=== PATIENT | female | born 1985 | race Caucasian/White ===

== ENCOUNTER → 2020-02-20 11:18 | Outpatient (BNVA) | payer OTHER, SELFPAY | PROVIDERS: PCP Internal Medicine; Visit Provider Surgery | DX: E66.01 Morbid (severe) obesity due to excess calories (principal); Z68.43 Body mass index [BMI] 50.0-59.9, adult | CPT/HCPCS: 99214; Q3014 ==

== ENCOUNTER → 2020-03-10 16:10 | Outpatient (BNVA) | payer OTHER, SELFPAY | PROVIDERS: PCP Internal Medicine; Referring Provider Internal Medicine; Visit Provider Dietitian, Registered | DX: Z76.89 Persons encountering health services in other specified circumstances (principal) ==

== ENCOUNTER → 2020-03-12 08:11 | Outpatient (BNVA) | payer OTHER, SELFPAY | PROVIDERS: PCP Internal Medicine; Referring Provider Internal Medicine; Visit Provider Surgery | DX: E66.01 Morbid (severe) obesity due to excess calories (principal); Z68.43 Body mass index [BMI] 50.0-59.9, adult; Z71.3 Dietary counseling and surveillance | CPT/HCPCS: 99213 ==

== ENCOUNTER → 2020-04-23 06:49 | Outpatient (BNVA) | payer OTHER, SELFPAY | PROVIDERS: PCP Internal Medicine; Referring Provider Internal Medicine; Visit Provider Surgery | DX: Z76.89 Persons encountering health services in other specified circumstances (principal) ==

== ENCOUNTER 2020-07-20 17:17 | Outpatient (REF) | payer OTHER, SELFPAY ==
[2020-07-20 18:48] LABS: Thyroid Stimulating Hormone 2.53 uIU/mL (0.32-4.0)
== END 2020-07-20 17:18 | disposition home or self-care (01) ==
LOC: HO.LAB 17:17
PROVIDERS: Visit Provider Internal Medicine
DX: R73.02 Impaired glucose tolerance (oral) (principal)
CPT/HCPCS: 36415; 84443

== ENCOUNTER 2020-07-24 09:00 | Outpatient (REF) | payer OTHER, SELFPAY ==
[2020-07-24 09:59] LABS: MANUAL DIFF FLAG NO
[2020-07-24 10:24] LABS: Basophils Percent Auto 0.3 % (0-2); Eosinophils Absolute Auto 0.3 X10*3/uL (0.0-0.4); Eosinophils Percent Auto 3.8 % (0-4); Hematocrit 42.5 % (37-47); Hemoglobin 13.8 g/dl (12.0-16.0); Imm Gran Abs Auto 0.02 X10*3/uL (0.00-0.03); Imm Gran Pct Auto 0.3 % (0.0-0.4); Lymphocytes Absolute Auto 2.1 X10*3/uL (1.2-4.9); Lymphocytes Percent Auto 28.5 % (20-40); Mean Corpuscular HGB Conc 32.5 g/dl (31.0-35.0); Mean Corpuscular Hemoglobin 28.9 pg (27.0-33.0); Mean Corpuscular Volume 88.9 fL (80-98); Mean Platelet Volume 11.2 fL (9.4-12.3); Monocytes Absolute Auto 0.5 X10*3/uL (0.1-1.2); Monocytes Percent Auto 6.2 % (2-11); Neutrophils Absolute Auto 4.4 X10*3/uL (2.0-8.3); Neutrophils Percent Auto 60.9 % (45-73); Platelet Count 355 X10*3/uL (160-400); Red Blood Count 4.78 X10*6/uL (4.20-5.50); Red Cell Distribution Width 13.3 % (11.0-16.0); White Blood Count 7.3 X10*3/uL (4.8-10.8)
[2020-07-24 10:46] LABS: Alanine Aminotransferase 14 U/L (0-31); Albumin Level 4.1 g/dL (3.5-5.0); Alkaline Phosphatase 73 U/L (39-117); Anion Gap 12 (12-20); Aspartate Amino Transferase 9 U/L (5-31); Bilirubin Total 0.4 mg/dL (0.0-1.0); Blood Urea Nitrogen 9 mg/dL (9-16); Carbon Dioxide 27 mmol/L (22-29); Chloride 105 mmol/L (96-108); Cholesterol 163 mg/dL; Estimated Glomerular Filt Rate > 60; Glucose Fasting 98 mg/dL (60-99); HDL Cholesterol 52 mg/dL; LDL Cholesterol Calculated 93 mg/dl; Potassium 4.6 mmol/L (3.3-5.1); Sodium 139 mmol/L (135-145); Total Protein 7.1 g/dL (6.5-8.0); Triglycerides 92 mg/dL
[2020-07-29 13:36] LABS: Vitamin D 25-OH, D2 <4 ng/mL; Vitamin D 25-OH, D3 16 ng/mL; Vitamin D 25-OH, Total 16 ng/mL (30-100)
== END 2020-07-24 09:01 | disposition home or self-care (01) ==
LOC: HO.LAB 09:00
PROVIDERS: Visit Provider Internal Medicine
DX: J45.50 Severe persistent asthma, uncomplicated (principal); E78.5 Hyperlipidemia, unspecified; R73.02 Impaired glucose tolerance (oral); E55.9 Vitamin D deficiency, unspecified
CPT/HCPCS: 36415; 80053; 80061; 82306; 85025

== ENCOUNTER 2021-06-14 08:56 | Outpatient (REF) | payer OTHER, SELFPAY ==
[2021-06-17 15:01] LABS: TS Negative Control Passed; TS Panel A 1; TS Panel B 0; TS Positive Control Passed; TSpotTB Negative (Negative)
[2021-06-19 08:55] LABS: SARS COV2 IgG Negative (Negative)
== END 2021-06-14 08:57 | disposition home or self-care (01) ==
LOC: HO.LAB 08:56
PROVIDERS: PCP Internal Medicine; Visit Provider Nurse Practitioner Family
DX: Z11.1 Encounter for screening for respiratory tuberculosis (principal); Z20.822 Contact with and (suspected) exposure to COVID-19; J45.909 Unspecified asthma, uncomplicated
CPT/HCPCS: 36415; 80053; 82306; 82607; 82746; 86481; 86769

== ENCOUNTER 2021-12-01 09:43 | Outpatient (REF) | payer OTHER, SELFPAY ==
[2021-12-04 01:07] LABS: TS Negative Control Passed; TS Panel A 3; TS Panel B 0; TS Positive Control Passed; TSpotTB Negative (Negative)
== END 2021-12-01 09:44 | disposition home or self-care (01) ==
LOC: HO.LAB 09:43
PROVIDERS: PCP Internal Medicine; Visit Provider Internal Medicine
DX: K21.9 Gastro-esophageal reflux disease without esophagitis (principal); R73.02 Impaired glucose tolerance (oral); E55.9 Vitamin D deficiency, unspecified; Z11.1 Encounter for screening for respiratory tuberculosis
CPT/HCPCS: 36415; 86481

== ENCOUNTER 2022-03-01 14:02 | Outpatient (REF) | payer OTHER, SELFPAY ==
--- NOTE | ~2022-03-01 | XR_ITS ---
EXAMINATION: XR FOOT, RIGHT CLINICAL INFORMATION: Right foot contusion. COMPARISON: None TECHNIQUE: AP, lateral, and oblique views of the right foot. An indicator arrow points to the distal aspect of the fifth metatarsal. FINDINGS: There is no acute fracture or dislocation. The joint spaces are unremarkable. The tarsal bones are normally aligned. There is a small plantar calcaneal spur. The soft tissues are unremarkable. XR/XR foot RT min 3V IMPRESSION: 1. No acute abnormality. Specifically, the fifth metatarsal is intact. 2. Small degenerative plantar calcaneal spur.
== END 2022-03-01 14:03 | disposition home or self-care (01) ==
LOC: HO.HMGCX 14:02
PROVIDERS: PCP Internal Medicine; Visit Provider Internal Medicine
DX: S90.31XA Contusion of right foot, initial encounter (principal)
CPT/HCPCS: 73630

== ENCOUNTER 2022-06-19 08:47 | Outpatient (REF) | payer OTHER, SELFPAY ==
[2022-06-19 09:13] LABS: MANUAL DIFF FLAG NO
[2022-06-19 09:51] LABS: Basophils Percent Auto 0.5 % (0-2); Eosinophils Absolute Auto 0.3 X10*3/uL (0.0-0.4); Eosinophils Percent Auto 4.9 % (0-4); Hematocrit 44.7 % (37.0-47.0); Imm Gran Abs Auto 0.01 X10*3/uL (0.00-0.03); Imm Gran Pct Auto 0.2 % (0.0-0.4); Lymphocytes Absolute Auto 1.6 X10*3/uL (1.2-4.9); Lymphocytes Percent Auto 27.7 % (20-40); Mean Corpuscular HGB Conc 33.6 g/dl (31.0-35.0); Mean Corpuscular Hemoglobin 28.9 pg (27.0-33.0); Mean Corpuscular Volume 86.1 fL (80.0-98.0); Mean Platelet Volume 11.2 fL (9.4-12.3); Monocytes Absolute Auto 0.5 X10*3/uL (0.1-1.2); Monocytes Percent Auto 8.4 % (2-11); Neutrophils Absolute Auto 3.3 x10*3/uL (2.0-8.3); Neutrophils Percent Auto 58.3 % (45-73); Platelet Count 315 X10*3/uL (160-400); Red Blood Count 5.19 X10*6/uL (4.20-5.50); Red Cell Distribution Width 12.9 % (11.0-16.0); White Blood Count 5.7 X10*3/uL (4.8-10.8)
[2022-06-19 10:32] LABS: Alanine Aminotransferase 21 U/L (0-31); Albumin Level 4.1 g/dL (3.5-5.0); Alkaline Phosphatase 67 U/L (39-117); Anion Gap 14 (12-20); Aspartate Amino Transferase 13 U/L (5-31); Bilirubin Total 0.3 mg/dL (0.0-1.0); Blood Urea Nitrogen 8 mg/dL (9-16); Calcium 9.6 mg/dL (8.4-10.2); Carbon Dioxide 26 mmol/L (22-29); Chloride 104 mmol/L (96-108); Cholesterol 146 mg/dL; Estimated Glomerular Filt Rate > 60; Glucose Random 118 mg/dL (60-115); HDL Cholesterol 36 mg/dL; LDL Cholesterol Calculated 96 mg/dl; Potassium 4.4 mmol/L (3.3-5.1); Sodium 140 mmol/L (135-145); Triglycerides 70 mg/dL
[2022-06-19 10:38] LABS: Thyroid Stimulating Hormone 1.46 uIU/mL (0.32-4.0); Vitamin D 25-OH Total 17.8 ng/mL (>30)
== END 2022-06-19 08:48 | disposition home or self-care (01) ==
LOC: HO.LAB 08:47
PROVIDERS: PCP Internal Medicine; Visit Provider Internal Medicine
DX: Z00.00 Encounter for general adult medical examination without abnormal findings (principal); E66.01 Morbid (severe) obesity due to excess calories; E55.9 Vitamin D deficiency, unspecified
CPT/HCPCS: 36415; 80053; 80061; 82306; 84443; 85025

== ENCOUNTER 2022-07-06 13:02 | Outpatient (REF) | payer OTHER, SELFPAY ==
[2022-07-06 14:09] LABS: Hematocrit 43.5 % (37.0-47.0); Hemoglobin 14.2 g/dl (12.0-16.0); Mean Corpuscular HGB Conc 32.6 g/dl (31.0-35.0); Mean Corpuscular Hemoglobin 28.3 pg (27.0-33.0); Mean Corpuscular Volume 86.8 fL (80.0-98.0); Mean Platelet Volume 10.4 fL (9.4-12.3); Platelet Count 428 X10*3/uL (160-400); Red Blood Count 5.01 X10*6/uL (4.20-5.50); Red Cell Distribution Width 13.1 % (11.0-16.0); White Blood Count 8.1 X10*3/uL (4.8-10.8)
[2022-07-06 15:00] LABS: HCG Quantitative < 2 mIU/mL; TSH reflex Free T4 1.27 uIU/mL (0.32-4.0)
[2022-07-07 12:01] LABS: CT PCR NOT DETECTED (Not Detect.); NG PCR NOT DETECTED (Not Detect.)
== END 2022-07-06 13:03 | disposition home or self-care (01) ==
LOC: HO.LAB 13:02
PROVIDERS: PCP Internal Medicine; Visit Provider Obstetrics & Gynecology
DX: Z01.419 Encounter for gynecological examination (general) (routine) without abnormal findings (principal); N93.9 Abnormal uterine and vaginal bleeding, unspecified
CPT/HCPCS: 0353U; 36415; 84443; 84702; 85027

== ENCOUNTER 2022-07-06 13:43 | Outpatient (REF) | payer OTHER, SELFPAY ==
[2022-07-11 05:24] LABS: HPV mRNA E6/E7 rflx Not Detected (Not Detected)
== END 2022-07-06 13:44 | disposition home or self-care (01) ==
LOC: HO.LNP 13:43
PROVIDERS: Visit Provider Obstetrics & Gynecology
DX: Z01.419 Encounter for gynecological examination (general) (routine) without abnormal findings (principal); N93.9 Abnormal uterine and vaginal bleeding, unspecified
CPT/HCPCS: 87624; 88142

== ENCOUNTER 2022-07-11 12:56 | Outpatient (REF) | payer OTHER, SELFPAY ==
--- NOTE | ~2022-07-11 | US_ITS ---
EXAMINATION: US PELVIS CLINICAL INFORMATION: Vaginal bleeding. LMP 07/06/2022. COMPARISON: CT abdomen/pelvis 12/17/2016. TECHNIQUE: Ultrasound of the pelvis is performed using both transabdominal and transvaginal transducers along with Doppler. Transvaginal imaging is performed due to inadequate visualization transabdominally. FINDINGS: Uterus: The uterus is anteverted and measures 9.7 x 4.1 x 4.9 cm. No discrete uterine lesions. The endometrium measures 6 mm in thickness without focal abnormality. Nabothian cysts overlie the cervix. Adnexa: The ovaries are normal in morphology with preserved color flow at the moment of this examination. There are multiple functional follicles in both ovaries, dominant on the left measuring 2 cm, for which no imaging follow-up is recommended. Right ovary measures 3 x 2.1 x 2.3 cm. Volume of 6.9 mL. Left ovary measures 3.3 x 2.4 x 1.9 cm. Volume of 5.4 mL. No free fluid. US/US pelvic and transvaginal IMPRESSION: No acute sonographic abnormalities.
== END 2022-07-11 12:57 | disposition home or self-care (01) ==
LOC: HO.US 12:56
PROVIDERS: PCP Internal Medicine; Visit Provider Obstetrics & Gynecology
DX: N93.9 Abnormal uterine and vaginal bleeding, unspecified (principal)
CPT/HCPCS: 76830; 76856

== ENCOUNTER 2022-07-26 13:02 | Outpatient (REF) | payer OTHER, SELFPAY | END 2022-07-26 13:03 | disposition home or self-care (01) | LOC: HO.LNP 13:02 | PROVIDERS: PCP Internal Medicine; Visit Provider Obstetrics & Gynecology | DX: N93.9 Abnormal uterine and vaginal bleeding, unspecified (principal) | CPT/HCPCS: 58100; 81025; 88305 ==

== ENCOUNTER → 2022-07-31 12:59 | Outpatient (BNVA) | payer OTHER, SELFPAY | PROVIDERS: PCP Internal Medicine; Visit Provider Obstetrics & Gynecology | DX: N85.00 Endometrial hyperplasia, unspecified (principal) | CPT/HCPCS: 99212 ==

== ENCOUNTER → 2022-08-03 13:00 | Outpatient (BNVA) | payer OTHER, SELFPAY | PROVIDERS: PCP Internal Medicine; Visit Provider Obstetrics & Gynecology | DX: N85.00 Endometrial hyperplasia, unspecified (principal) | CPT/HCPCS: 99212 ==

== ENCOUNTER → 2022-08-07 15:51 | Outpatient (BNVA) | payer OTHER, SELFPAY | PROVIDERS: Visit Provider Obstetrics & Gynecology | DX: N85.00 Endometrial hyperplasia, unspecified (principal); F41.1 Generalized anxiety disorder | CPT/HCPCS: 99212 ==

== ENCOUNTER 2023-01-25 09:42 | Outpatient (REF) | payer OTHER, SELFPAY ==
[2023-01-27 22:14] LABS: TS Negative Control Passed; TS Panel A 0; TS Panel B 0; TS Positive Control Passed; TSpotTB Negative (Negative)
== END 2023-01-25 09:43 | disposition home or self-care (01) ==
LOC: HO.LAB 09:42
PROVIDERS: PCP Internal Medicine; Visit Provider Internal Medicine
DX: Z11.1 Encounter for screening for respiratory tuberculosis (principal)
CPT/HCPCS: 36415; 86481

== ENCOUNTER → 2023-02-13 09:06 | Outpatient (BNVA) | payer OTHER, SELFPAY | PROVIDERS: PCP Internal Medicine; Visit Provider Physician Assistant ==

== ENCOUNTER 2023-10-19 09:06 | Outpatient (AMB) | payer OTHER, SELFPAY ==
[2023-10-19 09:07] VITALS: BP 118/80; BMI 50.4
--- NOTE | 2023-10-19 09:07 | A.OFFVIS_ITS ---
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 Doing well, with concerns: Hysterectomy last year due to endometrial hyperplasia, feels depressed over the loss of the ability to not have more children. Disclosed her past trauma and prefers female only providers for her comfort level. Admits to incontinence, worse with stress of laughing or cough coughing. She reports a high level of fatigue. Admits to not eating well, history of vitamin-D deficiency not currently treated. Limited activity level due to her energy level. Currently is sexually active. She denies vaginal itching and irritation. FH breast, ovarian and colon cancer. [facility] Medical History Generalized anxiety disorder Hypovitaminosis D Impaired glucose tolerance GERD (gastroesophageal reflux disease) Asthma Surgical History Hx of hysterectomy H/O wrist surgery S/P laparoscopic appendectomy S/P laparoscopic cholecystectomy Morbid obesity Family History (Updated 10/19/23 @ 09:[address] [facility]) Father No problems noted. Mother Brain tumor HTN (hypertension) Hyperlipidemia DM (diabetes mellitus) Arthritis Brother No problems noted. Sister No problems noted. Sister No problems noted. Son No problems noted. Daughter No problems noted. Family/Other Substance use disorder Mental health disorder Maternal Grandmother Breast cancer Paternal Grandmother Breast cancer Paternal Grandfather Leukemia Maternal Aunt Ovarian cancer Maternal Uncle Colon cancer Social History (Updated 10/19/23 @ 10:41 by Leslie Razo CNM) Household Members: Spouse and Children Housing: House Alcohol intake: never Patient Tobacco Use Status: Never used Tobacco e-Cigarette/Vaping Use: Never Used Second Hand Smoke Exposure: No Trauma History: Past trauma-prefers female providers only service: No Current occupational status: unemployed Sexual orientation: Straight/Heterosexual Gender identity: Female Cognitive needs: No Hearing needs: No Vision needs: No Female Reproductive History Menstrual Menopause type: surgical Total pregnancies: 3 Full term: 3 Number of Living Children: 3 Date of last pap smear: 07/07/22 Review of Systems Const All systems reviewed & are unremarkable except as noted in HPI and below Reports as per HPI Eyes Reports no additional complaints ENT Reports no additional complaints Card Reports no additional complaints Resp Reports no additional complaints GI Reports as per HPI and Reports no additional complaints Reports as per HPI Musc Reports no additional complaints Skin/Breast Reports as per HPI Neuro Reports no additional complaints Psych Reports no additional complaints Endo Reports no additional complaints Alexsander/Lymph Reports no additional complaints Aller/Immun Reports no additional complaints Physical Exam Vital Signs: Last Vital Signs BP 118/80 10/19/23 09:07 BMI result Body Mass Index 50.4 Const General: cooperative, healthy appearing, no acute distress, well developed and alert Orientation/consciousness: patient oriented x3 HEENT Head: Yes normal to inspection Eyes General: appearance normal, both eyes and all related structures Neck Neck: Yes normal visual inspection Thyroid: Thyroid normal Chest Chest palpation & inspection: normal inspection of the chest and other (no puckering, dimpling, peau de orange, retraction, discharge, masses) Breast/axilla inspection: normal inspection of the breasts Breast/axilla palpation: normal palpation of the breasts Resp Effort & Inspection: normal respiratory effort GI Inspection: Yes normal to inspection and Yes obesity Palpation (GI): Soft to palpation Rectal Exam - Female: deferred General: Yes bladder normal to palpation External Female Exam: normal external appearance and normal appearance of the urethra Speculum Exam - Vagina: normal appearance of the vagina, normal palpation and normal vaginal discharge Speculum Exam - Cervix: Cervix absent (Vaginal cuff no lesions or nodules) Bimanual exam- vagina & uterus: normal bimanual exam, normal palpation, bladder normal to palpation and uterus absent Bimanual Exam- Adnexa, other: no masses Skin General skin exam: no rashes or lesions noted Rashes: no rashes Neuro General: patient oriented x3 Cognition (Neuro): normal cognition Extrem General: Yes normal to inspection Psych Attitude: cooperative Thought process: Normal thought process present Assessment & Plan Assessment & Plan (1) Encounter for well woman exam with routine gynecological exam: Code(s): Z01.419 - Encounter for gynecological examination (general) (routine) without a bnormal findings Category: Medical (2) Family history of malignant neoplasm of breast: Code(s): Z80.3 - Family history of malignant neoplasm of breast (3) History of depression: Code(s): Z86.59 - Personal history of other mental and behavioral disorders (4) Incontinence: Code(s): R32 - Unspecified urinary incontinence Category: Medical Qualifiers: Incontinence type: urinary Urinary Incontinence type: unspecified incontinence Qualified Code(s): R32 - Unspecified urinary incontinence Plan Discussed: Current recommendations for pap smears per ASCCP guidelines-no longer needed due the hysterectomy. Breast awareness and periodic breast exams. Maintain a healthy lifestyle including a well balanced diet and routine exercise, start with small goals. Incontinence may improve with weight loss, exercise, correction of vitamin-D deficiency and other modalities. Self-care including emotional needs. Referral for: 1. counseling, 2. breast surgery for genetic testing screening, 3. urology for incontinence. Patient verbalizes understanding and agrees to the plan of care. She was given opportunity to ask questions and all questions were answered to the best of my ability. RTO in one year for annual telephone triage nurse examination. This note is constructed using voice recognition software. While every effort has been made to ensure accuracy, director of retail marketing errors may have been included. Orders: Referrals Breast Surgery Referral Z80.3 - Family history of malignant neoplasm of breast Counseling Referral Z86.59 - Personal history of other mental and behavioral disorders Urology Referral R32 - Unspecified urinary incontinence Coding Level of Care Code Est Pt Prev Care 18-39y(92986) Diagnoses Encounter for well woman exam with routine gynecological exam Z01.419 Family history of malignant neoplasm of breast Z80.3 History of depression Z86.59 Urinary incontinence, unspecified type R32 Incontinence type: urinary Urinary Incontinence type: unspecified incontinence
== END 2023-10-19 09:50 | disposition home or self-care (01) ==
LOC: HO.HWS 09:06
PROVIDERS: PCP Internal Medicine; Visit Provider Advanced Practice Midwife
DX: Z01.419 Encounter for gynecological examination (general) (routine) without abnormal findings (principal); Z80.3 Family history of malignant neoplasm of breast; Z86.59 Personal history of other mental and behavioral disorders; R32 Unspecified urinary incontinence
CPT/HCPCS: 99395

== ENCOUNTER → 2023-10-19 09:06 | Outpatient (BNVA) | payer OTHER, SELFPAY | PROVIDERS: PCP Internal Medicine; Visit Provider Advanced Practice Midwife | DX: Z01.419 Encounter for gynecological examination (general) (routine) without abnormal findings (principal); R32 Unspecified urinary incontinence; Z80.3 Family history of malignant neoplasm of breast; Z86.59 Personal history of other mental and behavioral disorders | CPT/HCPCS: 99395 ==

== ENCOUNTER 2023-11-13 11:10 | Outpatient (AMB) | payer OTHER, SELFPAY ==
--- NOTE | 2023-11-13 11:16 | MHC.OFFVIS ---
Vital Signs 11/13/23 11:30 Height 5 ft 1 in Weight 274 lb BMI 51.8 BP 145/85 H Blood Pressure Location Lt brachial Position Sitting Pulse 87 Intake Visit Reasons: Strong Family History of Breast Cancer Intake Note: Patient is seen in office for strong family history of breast cancer. Pt c/o: denies lump, bump, discharge, infection, breast surgeries, admits to rash under bilateral breast/yeast infection heat induced and weight, no other concerns mm: 0 Allergies No Known Allergies Allergy (Verified 11/13/23 11:51) Medication List - Last Reconciled 11/13/23 by Leonid Ruiz MD No Known Home Meds HPI Comments Details: 30-year-old female patient presenting for high risk breast examination. She has a strong family history of breast cancer including both her grandmother's. She reports a history of bilateral breast lumps which come and go and occasionally are uncomfortable. She denies a previous history of breast problems or breast surgery. She is and did not breastfeed her children. She presents today to discuss possible genetic testing. She has not undergone a previous mammogram or ultrasound of the breast. [facility] Medical History Generalized anxiety disorder Hypovitaminosis D Impaired glucose tolerance GERD (gastroesophageal reflux disease) Asthma Surgical History Hx of hysterectomy H/O wrist surgery S/P laparoscopic appendectomy S/P laparoscopic cholecystectomy Morbid obesity Family History Father No problems noted. Mother Brain tumor HTN (hypertension) Hyperlipidemia DM (diabetes mellitus) Arthritis Brother No problems noted. Sister No problems noted. Sister No problems noted. Son No problems noted. Daughter No problems noted. Family/Other Substance use disorder Mental health disorder Maternal Grandmother Breast cancer Paternal Grandmother Breast cancer Paternal Grandfather Leukemia Maternal Aunt Ovarian cancer Breast cancer Maternal Uncle Colon cancer Social History Household Members: Spouse and Children Housing: House Alcohol intake: never Patient Tobacco Use Status: Never used Tobacco e-Cigarette/Vaping Use: Never Used Second Hand Smoke Exposure: No Trauma History: Past trauma-prefers female providers only service: No Current occupational status: unemployed Sexual orientation: Straight/Heterosexual Gender identity: Female Cognitive needs: No Hearing needs: No Vision needs: No Female Reproductive History Menstrual Age of Menarche: 7 Date of last menstrual period: 09/01/22 Total pregnancies: 3 Number of Living Children: 3 Review of Systems Const All systems reviewed & are unremarkable except as noted in HPI and below Physical Exam Const General: cooperative and no acute distress Nutritional Appearance: well nourished Orientation/consciousness: patient oriented x3 Limitations: no limitations HEENT Head: Yes normocephalic and Yes atraumatic Ears: hearing grossly normal bilaterally Chest Other: Large, pendulous breasts bilaterally Left breast: No skin change, no nipple retraction, no nipple discharge, no palpable mass, no enlarged lymph nodes. Right breast: No skin change, no nipple retraction, no nipple discharge, no palpable mass, no enlarged lymph nodes Resp Effort & Inspection: normal respiratory effort, no audible wheezes, no cough and no respiratory distress Cardio Jugular venous distension: no JVD GI Inspection: Yes normal to inspection Skin Other: Warm, dry, no rash Neuro General: patient oriented x3 Extrem General: Yes no clubbing, cyanosis or edema Assessment & Plan Assessment & Plan (1) Family history of breast cancer: Code(s): Z80.3 - Family history of malignant neoplasm of breast Category: Medical Plan 38-year-old female patient with presenting with a strong family history of breast cancer in both grandmothers found on examination to have large pendulous breasts however no suspicious findings were noted in either breast and no enlarged lymph node were palpable. We discussed genetic testing and I reviewed the procedure, risks and benefits. She will consider her options and call if she is ready to undergo genetic testing. She should also consider undergoing screening mammography as well. We will await her call to set up genetic testing. Coding Level of Care Code New Pt Level 4 (16958) Diagnoses Family history of breast cancer Z80.3
[2023-11-13 11:30] VITALS: BP 145/85; PULSE 87; BMI 51.8
== END 2023-11-13 11:42 | disposition home or self-care (01) ==
PROVIDERS: PCP Internal Medicine; Visit Provider Surgery
DX: Z80.3 Family history of malignant neoplasm of breast (principal)
CPT/HCPCS: 99203

== ENCOUNTER → 2023-11-13 11:10 | Outpatient (BNVA) | payer OTHER, SELFPAY | PROVIDERS: PCP Internal Medicine; Visit Provider Surgery | DX: Z91.89 Other specified personal risk factors, not elsewhere classified (principal); Z80.3 Family history of malignant neoplasm of breast; Z76.89 Persons encountering health services in other specified circumstances | CPT/HCPCS: 99202 ==

== ENCOUNTER 2023-12-10 08:45 | Outpatient (REF) | payer OTHER, SELFPAY ==
[2023-12-10 08:57] LABS: MANUAL DIFF FLAG NO
[2023-12-10 09:17] LABS: Basophils Percent Auto 0.5 % (0-2); Eosinophils Absolute Auto 0.3 X10*3/uL (0.0-0.4); Eosinophils Percent Auto 4.1 % (0-4); Hemoglobin 14.3 g/dl (12.0-16.0); Imm Gran Abs Auto 0.02 X10*3/uL (0.00-0.03); Imm Gran Pct Auto 0.3 % (0.0-0.4); Lymphocytes Absolute Auto 2.3 X10*3/uL (1.2-4.9); Lymphocytes Percent Auto 30.8 % (20-40); Mean Corpuscular HGB Conc 33.3 g/dl (31.0-35.0); Mean Corpuscular Hemoglobin 29.5 pg (27.0-33.0); Mean Corpuscular Volume 88.8 fL (80.0-98.0); Monocytes Absolute Auto 0.5 X10*3/uL (0.1-1.2); Monocytes Percent Auto 6.9 % (2-11); Neutrophils Absolute Auto 4.3 x10*3/uL (2.0-8.3); Neutrophils Percent Auto 57.4 % (45-73); Platelet Count 313 X10*3/uL (160-400); Red Blood Count 4.84 X10*6/uL (4.20-5.50); Red Cell Distribution Width 13.4 % (11.0-16.0); White Blood Count 7.5 X10*3/uL (4.8-10.8)
[2023-12-10 10:04] LABS: Alanine Aminotransferase 16 U/L (0-31); Albumin Level 4.2 g/dL (3.5-5.0); Alkaline Phosphatase 69 U/L (39-117); Anion Gap 12 (12-20); Aspartate Amino Transferase 12 U/L (5-31); Bilirubin Total 0.3 mg/dL (0.0-1.0); Blood Urea Nitrogen 12 mg/dL (9-16); Calcium 9.2 mg/dL (8.4-10.2); Carbon Dioxide 26 mmol/L (22-29); Chloride 106 mmol/L (96-108); Cholesterol 192 mg/dL (<200); Estimated Glomerular Filt Rate > 60; Glucose Fasting 113 mg/dL (60-99); HDL Cholesterol 58 mg/dL (>40); Iron 94 mcg/dL (30-160); LDL Cholesterol Calculated 105 mg/dL (<100); Percent Iron Saturation 29 % (15-50); Potassium 4.7 mmol/L (3.3-5.1); Sodium 139 mmol/L (135-145); Total Iron Binding Capacity 325 mcg/dL (228-428); Total Protein 7.2 g/dL (6.5-8.0); Triglycerides 148 mg/dL (<150); Unsaturated Iron Binding 231 ug/dL
[2023-12-10 10:06] LABS: Thyroid Stimulating Hormone 1.85 uIU/mL (0.32-4.0); Vitamin D 25-OH Total 24.6 ng/mL (>30)
[2023-12-10 12:54] LABS: Folate 8.2 ng/mL (> or = 4.0); Vitamin B12 386 pg/mL (200-900)
== END 2023-12-10 08:46 | disposition home or self-care (01) ==
LOC: HO.LAB 08:45
PROVIDERS: PCP Internal Medicine; Visit Provider Internal Medicine
DX: E55.9 Vitamin D deficiency, unspecified (principal); D64.9 Anemia, unspecified; E66.01 Morbid (severe) obesity due to excess calories; E53.8 Deficiency of other specified B group vitamins; R73.02 Impaired glucose tolerance (oral); E78.5 Hyperlipidemia, unspecified
CPT/HCPCS: 36415; 80053; 80061; 82306; 82607; 82746; 83540; 84443; 85025

== ENCOUNTER 2023-12-10 10:49 | Outpatient (AMB) | payer OTHER, SELFPAY ==
[2023-12-10 10:52] VITALS: BP 150/110; BMI 52.0
--- NOTE | 2023-12-10 10:52 | MHC.PC.OV ---
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 Accompanied by: Daughter Allergies No Known Allergies Allergy (Verified 12/10/23 11:03) Medication List - Last Reconciled 12/10/23 by Carol Benitez MD No Known Home Meds Tobacco use date assessed: 12/10/23 Dental Screening Dental Screen Date: 12/10/23 Did you have a dental visit in the last 12 months?: Yes Did you have a dental problem in the last 6 months where you did not have access to dental care?: No Was dental information given to patient?: Patient has dentist HPI HPI Comments History of Present Illness Details This is a 38-year-old female with morbid obesity and moderate recurrent major depression that comes for her physical exam. Pap smear done 2022. She is morbidly obese and will start weight management for possible weight loss surgery. She has depression but no suicidal thoughts and declines medication but would like counseling. Labs were discussed. [facility] Medical History (Updated 12/10/23 @ 11:46 by Carol Benitez MD) Generalized anxiety disorder Hypovitaminosis D Impaired glucose tolerance GERD (gastroesophageal reflux disease) Asthma Surgical History Hx of hysterectomy H/O wrist surgery S/P laparoscopic appendectomy S/P laparoscopic cholecystectomy Morbid obesity Family History Father No problems noted. Mother Brain tumor HTN (hypertension) Hyperlipidemia DM (diabetes mellitus) Arthritis Brother No problems noted. Sister No problems noted. Sister No problems noted. Son No problems noted. Daughter No problems noted. Family/Other Substance use disorder Mental health disorder Maternal Grandmother Breast cancer Paternal Grandmother Breast cancer Paternal Grandfather Leukemia Maternal Aunt Ovarian cancer Breast cancer Maternal Uncle Colon cancer Social History Household Members: Spouse and Children Housing: House Alcohol intake: never Patient Tobacco Use Status: Never used Tobacco e-Cigarette/Vaping Use: Never Used Second Hand Smoke Exposure: No Trauma History: Past trauma-prefers female providers only service: No Current occupational status: unemployed Sexual orientation: Straight/Heterosexual Gender identity: Female Cognitive needs: No Hearing needs: No Vision needs: No Female Reproductive History Menstrual Age of Menarche: 7 Questionnaire PHQ-9 Over the last 2 weeks, how often have you been bothered by any of the following problems? 1. Little interest or pleasure in doing things: several days 2. Feeling down, depressed, or hopeless: more than half the days 3. Trouble falling or staying asleep, or sleeping too much: nearly every day 4. Feeling tired or having little energy: nearly every day 5. Poor appetite or overeating: more than half the days 6. Feeling bad about yourself - or that you are a failure or have let yourself or your family down: more than half the days 7. Trouble concentrating on things, such as reading the newspaper or watching television: several days 8. Moving or speaking so slowly that other people could have noticed. Or the opposite - being so fidgety or restless that you have been moving around a lot more than usual: more than half the days 9. Thoughts that you would be better off or of hurting yourself in some way: not at all Total score: 16 Depression Screening Interpretation: Positive (no suicidal thoughts) Depression Screening Follow-up: Existing condition and Follow-up Visit Requested Depression Screening Done: Yes 26572 - PHQ-9 Billing: Yes Source: Developed by Drs. Xavier Meraz, Caron Lynch, Travis Christine and colleagues, with an educational noemy from [employer]. Thrive Questionnaire Date Thrive assessed: 12/10/23 I am a: Patient What is your living situation today?: I have a steady place to live Within the past 12 months, did the food you bought not last and you didn't have the money to get more?: Never true Within the past 12 months, did you worry whether your food would run out before you got money to buy more?: Never true Do you have trouble paying for medicines?: No Do you have trouble getting transportation to medical appointments?: No Do you have trouble paying your heating and electricity bill?: No Do you have trouble taking care of your child, family member or friend?: No Do you have trouble with day-to-day activities such as bathing, preparing meals, shopping, managing finances, etc.?: No Are you currently unemployed and looking for a job?: No Are you interested in more education?: No Please select the resources that you would like help with: None Currently or been in a relationship where the following occur: No concerns reported THRIVE Score: 0 AUDIT C Alcohol Use Questionnaire (AUDIT-C) 1. How often do you have a drink containing alcohol?: Never Total Score: 0 Score Reviewed/Action Taken: No MAIKEL-7 AMB Questionnaire MAIKEL-7 Date MAIKEL - 7 assessed: 12/10/23 Feeling nervous, anxious, or on edge: 2 = More than half the days Not being able to stop or control worryin = Nearly every day Worrying too much about different things: 3 = Nearly every day Trouble relaxin = More than half the days Being so restless that it is hard to sit still: 2 = More than half the days Becoming easily annoyed or irritable: 2 = More than half the days Feeling afraid as if something awful might happen: 1 = Several days Total MAIKEL-7 score (0-4 normal; 5-9 mild; 10-14 moderate; 15-21 severe): 15 Source: Developed by Drs. Xavier Meraz, Caron Lynch, Travis Christine and colleagues, with an educational noemy from [employer]. MAIKEL-7 Assessment Billing MAIKEL-7 Assessment Tool: MAIKEL-7 Assessment 26967 Review of Systems Const All systems reviewed & are unremarkable except as noted in HPI and below Card Denies chest pain at rest, Denies chest pain with activity, Denies edema, Denies irregular heart rhythm, Denies claudication, Denies dyspnea, Denies dyspnea on exertion, Denies orthopnea, Denies paroxysmal nocturnal dyspnea and Denies slow heart rate Resp Denies cough, Denies dyspnea and Denies dyspnea on exertion GI Denies abdominal pain, Denies change in bowel habits, Denies excessive flatus, Denies nausea and Denies vomiting Physical exam (Primary Care) Vital Signs: Last Vital Signs BP 150/110 H 12/10/23 10:52 BMI result Body Mass Index 52.0 BMI Assessment/Plan discussion: High BMI High, discussed plan: lifestyle, weight reduction, dietary and physical activity Tobacco/Smoking Status: Tobacco use Status Tobacco use date assessed 12/10/23 12/10/23 11:00 Patient Tobacco Use Status Never used Tobacco 12/10/23 11:00 e-Cigarette/Vaping Use Never Used 12/10/23 11:00 PHQ-9: PHQ-9 Score PHQ-9: Total score 16 12/10/23 11:11 Depression Screening Interpretation: Positive (no suicidal thoughts) Depression Screening Follow-up: Existing condition and Follow-up Visit Requested Thrive Assessment: Date of Thrive Assessment Date Thrive assessed 12/10/23 12/10/23 11:00 Currently or been in a relationship where the following occur: No concerns reported HENMT Head: Yes normal to inspection, Yes normocephalic and Yes atraumatic Ears: external ears normal Eyes General: appearance normal, both eyes and all related structures Eyelids: Yes eyelids normal Conjunctivae: conjunctivae normal Neck Neck: Yes normal visual inspection and Yes supple Resp Effort & Inspection: normal respiratory effort Auscultation: clear to auscultation bilaterally Cardio Jugular venous distension: no JVD Rate: regular rate Rhythm: regular rhythm Heart sounds: S1 normal heart sound present and S2 normal heart sound present GI Inspection: Yes normal to inspection Palpation (GI): Soft to palpation and nontender Auscultation: normal bowel sounds Skin General skin exam: no rashes or lesions noted Neuro General: no focal motor deficits Extrem General: Yes full ROM Psych Appearance: grossly normal Assessment and Plan Assessment & Plan (1) Physical exam: Code(s): Z00.00 - Encounter for general adult medical examination without abnormal findings Plan: Repeat in a year. (2) Morbid obesity: Code(s): E66.01 - Morbid (severe) obesity due to excess calories Plan: Follow-up with weight management. BMI goal is less than 30. (3) Moderate recurrent major depression: Code(s): F33.1 - Major depressive disorder, recurrent, moderate Plan: Referred to counseling. Coding Level of Care Code Est Pt Level 3 (99156) Est Pt Prev Care 18-39y(13735) Diagnoses Physical exam Z00.00 Morbid obesity E66.01 Moderate recurrent major depression F33.1 Additional Codes MAIKEL-7 Assessment Billing - MAIKEL-7 Assessment Tool: MAIKEL-7 Assessment 70372 ([id number]) Time Spent (min) 33
== END 2023-12-10 11:17 | disposition home or self-care (01) ==
PROVIDERS: PCP Internal Medicine; Visit Provider Internal Medicine
DX: Z00.00 Encounter for general adult medical examination without abnormal findings (principal); E66.01 Morbid (severe) obesity due to excess calories; F33.1 Major depressive disorder, recurrent, moderate; Z68.43 Body mass index [BMI] 50.0-59.9, adult
CPT/HCPCS: 99395

== ENCOUNTER 2024-01-15 08:58 | Outpatient (AMB) | payer OTHER, SELFPAY ==
--- NOTE | 2024-01-15 09:01 | A.OFFVIS_ITS ---
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 She had in the program from February through 05/09/2020. She left due to family issues with a and an inability to commit at that time. Her goal is to lose weight and achieve a healthy lifestyle. She reports first being concerned about her weight over 5 years, highest weight to date was 301. Current weight is 272 pounds with a BMI of 51.4. She has tried multiple methods of weight loss including previous surgical weight loss program without permanent results. She lives with her and kids. 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 She wakes at:?5 am, and goes to bed at?11 pm. Dinner is at 5 pm. Breakfast: skip or eggs and toast w coffee black AM snack: skip or chips Lunch: sandwich PM snack: clara Dinner: steak, veg, gretta nuggets, wontons After dinner: toast w butter Other snacks: gummy candy Liquids: 64 oz water, 40 oz john seema and root beer, 8 oz juice Alcohol/marijuana/tobacco intake: rare etoh, no cannabis, no tobacco Exercise: walking outside, treadmill at home [facility] Medical History Generalized anxiety disorder Hypovitaminosis D Impaired glucose tolerance GERD (gastroesophageal reflux disease) Asthma Surgical History Hx of hysterectomy H/O wrist surgery S/P laparoscopic appendectomy S/P laparoscopic cholecystectomy Morbid obesity Family History Father No problems noted. Mother Brain tumor HTN (hypertension) Hyperlipidemia DM (diabetes mellitus) Arthritis Brother No problems noted. Sister No problems noted. Sister No problems noted. Son No problems noted. Daughter No problems noted. Family/Other Substance use disorder Mental health disorder Maternal Grandmother Breast cancer Paternal Grandmother Breast cancer Paternal Grandfather Leukemia Maternal Aunt Ovarian cancer Breast cancer Maternal Uncle Colon cancer Social History Household Members: Spouse and Children Housing: House Alcohol intake: never Patient Tobacco Use Status: Never used Tobacco e-Cigarette/Vaping Use: Never Used Second Hand Smoke Exposure: No Trauma History: Past trauma-prefers female providers only service: No Current occupational status: unemployed Sexual orientation: Straight/Heterosexual Gender identity: Female Cognitive needs: No Hearing needs: No Vision needs: No Female Reproductive History Menstrual Age of Menarche: 7 Physical Exam Const General: cooperative, healthy appearing and no acute distress Orientation/consciousness: patient oriented x3 HEENT Head: Yes normal to inspection Ears: hearing grossly normal bilaterally General nose exam: Normal external nose present Face and sinus: Yes normal facial exam Eyes General: appearance normal, both eyes and all related structures Resp Effort & Inspection: normal respiratory effort Auscultation: clear to auscultation bilaterally Cardio Rate: regular rate Rhythm: regular rhythm Heart sounds: S1 normal heart sound present and S2 normal heart sound present GI Inspection: Yes normal to inspection, No distended and Yes obesity Palpation (GI): Soft to palpation, nontender and no guarding Auscultation: normal bowel sounds Skin General skin exam: no rashes or lesions noted Neuro General: patient oriented x3 Extrem General: No edema Psych Appearance: grossly normal Mental Status: mental status grossly normal Speech and movement: Normal speech and movement present Affect: normal affect Attitude: cooperative Assessment & Plan Assessment & Plan (1) Morbid obesity: Code(s): E66.01 - Morbid (severe) obesity due to excess calories Category: Surgical Plan: This is a?38 yo female who will re-start our SWL program to prepare for bariatric surgery.? Blood work, CXR, ECG, Abd US and UGI have been ordered. She is being scheduled for initial consultations. She will start SWL classes and watch the first three videos before her next appointment. 1. You have been given a paper with a link to our software brian ([email or web address]) to generate an individualized nutritional and exercise plan specific for you. Please send me a screenshot of the plans you will generate Meal to include lean meat (beef, fish, pork, turkey, chicken), or turkmen yogurt, or egg whites, or beans with a salad with olive oil and fruits (berries, pears, apples, kiwi). Avoid salt, breads, potatoes, rice, pasta, desserts. 2. If you choose shakes, each shake would be drunk slowly, like coffee over a period of 2 hours. 3. If you choose bars, cut each bar in 4 pieces and eat each piece in 30 min to make each bar last 2 hours. 4. I emphasized the importance of measuring accurately the food portion and measure it when serving the food on a plate 5. The meal portions include a specific number of forks of meat (protein) and salad. You always eat the meat portion but you can replace up to half of salad/vegetables portion with rice, potatoes or pasta, or a fruit ?if you like. The less you do it the better weight loss will be. 6. One full-size fork is what can be scooped on the fork without falling aside and not what can be bit with the fork. Use regular forks like those you find in a typical restaurant. 7.? Please send me weight measurements from your body composition scale as soon as possible and then once a week. Always include your diet and exercise plan. The best time to weigh yourself is first thing in the morning after going to the bathroom. 8. The best choice for exercise would be treadmill at home. Alternatively start walking outside daily, tracking calories with a goal of 300 calories per day, daily. You can download the brian [employer] which can track your time, distance and calories while walking outside. You press start in the brian when you start and then stop when you are finished. 9.?Goal is to lose at least 1.5-2 lbs per week, and about 10% before surgery, which is about 27 pounds 10. Please follow the diet plan exactly without any change. If you don't like something about the plan or you feel hungry you need to communicate with me so I can help you revise the plan. My cell phone number to communicate with me by text is [phone] Patient is morbidly obese and is not considered stable at this time.?I spent a total of 70 minutes reviewing/updating records, examining the patient and counseling the patient on weight management as detailed above. Orders: Orders Complete Blood Count Auto Diff Today E66.01 - Morbid (severe) obesity due to excess calories, R73.02 - Impaired glucose tolerance (oral) Lipid Panel Today E66.01 - Morbid (severe) obesity due to excess calories, R73.02 - Impaired glucose tolerance (oral) IRON PROFILE Today E66.01 - Morbid (severe) obesity due to excess calories, R73.02 - Impaired glucose tolerance (oral) Comprehensive Met. Panel Today E66.01 - Morbid (severe) obesity due to excess calories, R73.02 - Impaired glucose tolerance (oral) Zinc Today E66.01 - Morbid (severe) obesity due to excess calories, R73.02 - Impaired glucose tolerance (oral) Vitamin A Today E66.01 - Morbid (severe) obesity due to excess calories, R73.02 - Impaired glucose tolerance (oral) Ferritin Today E66.01 - Morbid (severe) obesity due to excess calories, R73.02 - Impaired glucose tolerance (oral) XR chest 2V Today E66.01 - Morbid (severe) obesity due to excess calories, R73.02 - Impaired glucose tolerance (oral) FL upper GI w air Today E66.01 - Morbid (severe) obesity due to excess calories, R73.02 - Impaired glucose tolerance (oral) Insulin Today E66.01 - Morbid (severe) obesity due to excess calories, R73.02 - Impaired glucose tolerance (oral) Hemoglobin A1c Today E66.01 - Morbid (severe) obesity due to excess calories, R73.02 - Impaired glucose tolerance (oral) Vitamin B12 and Folate Today E66.01 - Morbid (severe) obesity due to excess calories, R73.02 - Impaired glucose tolerance (oral) C Reactive Protein Today E66.01 - Morbid (severe) obesity due to excess calories, R73.02 - Impaired glucose tolerance (oral) Vitamin B1 Today E66.01 - Morbid (severe) obesity due to excess calories, R73.02 - Impaired glucose tolerance (oral) TSH reflex Free T4 Today E66.01 - Morbid (severe) obesity due to excess calories, R73.02 - Impaired glucose tolerance (oral) Vitamin D 25-OH Total Today E66.01 - Morbid (severe) obesity due to excess calories, R73.02 - Impaired glucose tolerance (oral) US abdomen comp w elastography Today E66.01 - Morbid (severe) obesity due to excess calories, R73.02 - Impaired glucose tolerance (oral) ECG 12 lead EKG Today E66.01 - Morbid (severe) obesity due to excess calories, R73.02 - Impaired glucose tolerance (oral) Referrals Behavioral Health Referral E66.01 - Morbid (severe) obesity due to excess calories, R73.02 - Impaired glucose tolerance (oral)
[2024-01-15 09:17] VITALS: BP 129/74; PULSE 68; TEMP 35.6; O2SAT 99; BMI 51.4
== END 2024-01-15 09:54 | disposition home or self-care (01) ==
PROVIDERS: PCP Internal Medicine; Visit Provider Physician Assistant Surgical
DX: E66.01 Morbid (severe) obesity due to excess calories (principal); Z68.43 Body mass index [BMI] 50.0-59.9, adult
CPT/HCPCS: 99205

== ENCOUNTER → 2024-01-15 08:58 | Outpatient (BNVA) | payer OTHER, SELFPAY | PROVIDERS: PCP Internal Medicine; Visit Provider Physician Assistant Surgical | DX: E66.01 Morbid (severe) obesity due to excess calories (principal); R73.02 Impaired glucose tolerance (oral); Z68.43 Body mass index [BMI] 50.0-59.9, adult | CPT/HCPCS: 99202 ==

== ENCOUNTER 2024-01-25 08:48 | Outpatient (REF) | payer OTHER, SELFPAY ==
--- NOTE | ~2024-01-25 | US_ITS ---
EXAMINATION: US COMPLETE ABDOMEN WITH LIVER ELASTOGRAPHY CLINICAL INFORMATION: Morbid obesity, preop. COMPARISON: Abdominal ultrasound with elastoplasty 02/11/2020. TECHNIQUE: Real-time imaging of the abdominal viscera. Noninvasive ultrasound liver fibrosis assessment is performed using Daylin ElastPQ point quantification shear wave elastography (pSWE) with a C5-2 MHz transducer. Multiple elastography samples are obtained. FINDINGS: PANCREAS: The pancreas was nearly completely obscured by bowel gas and could not be evaluated. ABDOMINAL AORTA: The proximal, middle, and distal aortic segments are normal in caliber. INFERIOR VENA CAVA: Visualized portions are normal. LIVER: The liver demonstrates normal size and contour. Echogenicity is increased compatible with hepatic steatosis. No focal lesion or intrahepatic biliary duct dilatation. The right lobe measures 16.3 cm in length. The left lobe measures 12.9 cm in length. Portal flow is towards the liver (hepatopetal). Shear wave liver elastography median stiffness is 1.84 m/s (reference: normal median stiffness is 1.3 m/s or less). Previously this value was 1.41. IQR/median stiffness to assess sampling precision is 0.13 (reference: good quality data set is IQR/median stiffness of 0.15 or less). Previously this value was 0.30. GALLBLADDER: Status post cholecystectomy. COMMON BILE DUCT: Normal in caliber measuring 0.7 cm in diameter. RIGHT KIDNEY: Normal. No hydronephrosis. No renal calculi or focal parenchymal lesions. The kidney measures 10.3 cm in maximum dimension. LEFT KIDNEY: Normal. No hydronephrosis. No renal calculi or focal parenchymal lesions. The kidney measures 11.3 cm in maximum dimension. SPLEEN: Normal. The spleen measures 10.6 cm in maximum dimension. FREE FLUID: None. US/US abdomen comp w elastography IMPRESSION: 1. Echogenic liver consistent with hepatic steatosis. 2. Liver elastography: Measurements are suggestive of compensated advanced chroniic liver disease but need further test for confirmation. When compared with prior exam, there is a statistically significant increase in liver stiffness (increase at least 10%). REFERENCE: Society of Radiologists in Ultrasound Liver Stiffness Thresholds (2019): LIVER STIFFNESS THRESHOLDS: *Liver Stiffness equal or less than 1.3 m/s: High probability of being normal. *Liver Stiffness less than 1.7 m/s: In the absence of other known clinical signs, rules out compensated advanced chronic liver disease. *Liver Stiffness 1.7-2.1 m/s: Suggestive of compensated advanced chronic liver disease but need further test for confirmation. *Liver Stiffness over 2.1 m/s: Rules in compensated advanced chronic liver disease. *Liver Stiffness over 2.4 m/s: Suggestive of clinically significant portal hypertension. QUALITY OF DATA SET: *IQR/Median value equal or less than 0.15 implies a quality data set. *IQR/Median value over 0.15 implies a poor quality data set. SIGNIFICANT CHANGE FROM PRIOR EXAM: Significant change if liver stiffness measurement is 10% or greater from prior exam. OTHER CONSIDERATIONS: The stage of liver fibrosis may be overestimated in the setting of acute hepatitis, liver inflammation, elevated liver function tests, hepatic vascular congestion, obstructive cholestasis, non-fasting state, and infiltrative diseases such as amyloidosis and lymphoma. In some patients with NAFLD, the liver stiffness thresholds for compensated advanced chronic liver disease may be lower. In causes other than viral hepatitis and NAFLD, liver stiffness thresholds are not well established. Electronically signed by: Donovan Florian MD 02/02/2024 12:36 PM EDT
--- NOTE | ~2024-01-25 | XR_ITS ---
EXAMINATION: XR chest 2V CLINICAL INFORMATION: E66.01 - Morbid (severe) obesity due to excess calories COMPARISON: Chest radiograph 08/08/2019 TECHNIQUE: 2 views of the chest FINDINGS: Clear lungs. No pneumothorax. No pleural effusion. Normal cardiomediastinal silhouette. XR/XR chest 2V IMPRESSION: No acute cardiopulmonary findings. Electronically signed by: Ana Rosa Padilla MD 02/12/2024 04:24 PM EDT
--- NOTE | 2024-01-25 10:08 | ECG_ITS ---
Test Reason : morb obs Blood Pressure : / mmHG Vent. Rate : 073 BPM Atrial Rate : 073 BPM P-R Int : 158 ms QRS Dur : 076 ms QT Int : 406 ms P-R-T Axes : 009 030 026 degrees QTc Int : 447 ms Normal sinus rhythm Normal ECG When compared with ECG of 11-FEB-2020 10:32, No significant change was found Referred By: Obie Messer Electronically Signed By:BONNIE SOTO
[2024-01-25 10:31] LABS: MANUAL DIFF FLAG NO
[2024-01-25 11:41] LABS: Basophils Percent Auto 0.4 % (0-2); Eosinophils Absolute Auto 0.3 X10*3/uL (0.0-0.4); Eosinophils Percent Auto 3.1 % (0-4); Hemoglobin 14.2 g/dl (12.0-16.0); Imm Gran Abs Auto 0.03 X10*3/uL (0.00-0.03); Imm Gran Pct Auto 0.4 % (0.0-0.4); Lymphocytes Percent Auto 23.9 % (20-40); Mean Corpuscular Hemoglobin 29.4 pg (27.0-33.0); Mean Platelet Volume 11.1 fL (9.4-12.3); Monocytes Absolute Auto 0.5 X10*3/uL (0.1-1.2); Monocytes Percent Auto 5.8 % (2-11); Neutrophils Absolute Auto 5.6 x10*3/uL (2.0-8.3); Neutrophils Percent Auto 66.4 % (45-73); Platelet Count 298 X10*3/uL (160-400); Red Blood Count 4.83 X10*6/uL (4.20-5.50); Red Cell Distribution Width 13.1 % (11.0-16.0); White Blood Count 8.4 X10*3/uL (4.8-10.8)
[2024-01-25 12:37] LABS: Alanine Aminotransferase 14 U/L (0-31); Albumin Level 4.1 g/dL (3.5-5.0); Alkaline Phosphatase 60 U/L (39-117); Anion Gap 11 (12-20); Aspartate Amino Transferase 11 U/L (5-31); Bilirubin Total 0.4 mg/dL (0.0-1.0); Blood Urea Nitrogen 10 mg/dL (9-16); C Reactive Protein 0.87 mg/dL (< or = 0.50); Calcium 9.3 mg/dL (8.4-10.2); Carbon Dioxide 27 mmol/L (22-29); Chloride 106 mmol/L (96-108); Cholesterol 165 mg/dL (<200); Estimated Average Glucose 111 mg/dL; Estimated Glomerular Filt Rate > 60; Glucose Random 106 mg/dL (60-115); HDL Cholesterol 54 mg/dL (>40); Hemoglobin A1c % 5.5 % (<6.0); Iron 61 mcg/dL (30-160); LDL Cholesterol Calculated 96 mg/dL (<100); Percent Iron Saturation 19 % (15-50); Potassium 4.6 mmol/L (3.3-5.1); Sodium 139 mmol/L (135-145); Total Iron Binding Capacity 319 mcg/dL (228-428); Total Protein 7.1 g/dL (6.5-8.0); Triglycerides 78 mg/dL (<150); Unsaturated Iron Binding 258 ug/dL
[2024-01-25 12:58] LABS: Ferritin 87 ng/mL (10-122); Insulin 13 uU/mL (2-29); TSH reflex Free T4 1.95 uIU/mL (0.32-4.0)
[2024-01-25 13:05] LABS: Folate 11.5 ng/mL (> or = 4.0); Vitamin B12 392 pg/mL (200-900)
[2024-01-28 15:13] LABS: TS Negative Control Passed; TS Panel A 0; TS Panel B 0; TS Positive Control Passed; TSpotTB Negative (Negative)
[2024-01-30 17:18] LABS: Vitamin A 55 mcg/dL (38-98)
[2024-01-30 20:09] LABS: Zinc 73 mcg/dL (60-130)
[2024-02-11 16:35] LABS: Vitamin B1 163
== END 2024-01-25 08:49 | disposition home or self-care (01) ==
LOC: HO.US 08:48
PROVIDERS: Absent Provider Internal Medicine; PCP Internal Medicine; Visit Provider Physician Assistant Surgical
DX: Z11.1 Encounter for screening for respiratory tuberculosis (principal); E66.01 Morbid (severe) obesity due to excess calories; R73.02 Impaired glucose tolerance (oral)
CPT/HCPCS: 36415; 71046; 76700; 76981; 80053; 80061; 82306; 82607; 82728; 82746; 83036; 83525; 83540; 84425; 84443; 84590; 84630; 85025; 86140; 86481; 93005

== ENCOUNTER 2024-01-28 11:00 | Outpatient (AMB) | payer OTHER, SELFPAY ==
--- NOTE | 2024-01-28 11:11 | A.OFFWM_ITS ---
Intake Intake Visit Reasons: VIDEO BH Intake Allergies No Known Allergies Allergy (Verified 01/28/24 13:29) [facility] Medical History Generalized anxiety disorder Hypovitaminosis D Impaired glucose tolerance GERD (gastroesophageal reflux disease) Asthma Surgical History Hx of hysterectomy H/O wrist surgery S/P laparoscopic appendectomy S/P laparoscopic cholecystectomy Morbid obesity Family History Father No problems noted. Mother Brain tumor HTN (hypertension) Hyperlipidemia DM (diabetes mellitus) Arthritis Brother No problems noted. Sister No problems noted. Sister No problems noted. Son No problems noted. Daughter No problems noted. Family/Other Substance use disorder Mental health disorder Maternal Grandmother Breast cancer Paternal Grandmother Breast cancer Paternal Grandfather Leukemia Maternal Aunt Ovarian cancer Breast cancer Maternal Uncle Colon cancer Social History (Updated 01/28/24 @ 13:32 by Carol Benitez MD) Household Members: Spouse and Children Housing: House Alcohol intake: current Alcohol intake frequency: holidays/special occasions only Alcohol type: beer and wine Patient Tobacco Use Status: Never used Tobacco e-Cigarette/Vaping Use: Never Used Second Hand Smoke Exposure: No Trauma History: Past trauma-prefers female providers only service: No Current occupational status: employed Current occupational exposures/hazards: No Sexual orientation: Straight/Heterosexual Gender identity: Female Cognitive needs: No Hearing needs: No Vision needs: No Female Reproductive History Menstrual Age of Menarche: 7 Behavioral Health Assessment Weight Management Therapy Therapy Notes Details PT is a 38 years old Female, who presents for a visit to complete assessment as part of surgical weight loss program. PT is re-establishing care after being in the program in 2020. 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 Presenting Concerns Referral Source P Provider. PT saw MARCIE on 01/14. Reason for referral Completion of behavioral health assessment as part of process for weight-loss surgery. Precipitating Event Obesity. Food/Weight/Diet Expectations of change Initial goal is to lose at least 1.5-2 lbs per week, and about 10% before surgery, which is about 27 pounds. She re-started the program at 272Lbs. Patient goals are PT is implementing the following: Current meal plan: Exercise plan: History/Relationship with food Example of meals before starting the program: Breakfast: Lunch: Dinner: Snacks: Drinks/Liquids: History/Relationship with weight In the last 10 years, the patient's Lowest weight was and highest History/Relationship with dieting PT dis [facility] in 2019, she stopped attending as he had a rough time due to 2 family members passing. During that time she gained over 30Lbs, Social History Family history and relationship PT is 14 years ago and they have 3 children. PT has 2 sisters and 1 younger brother but they don't have communication. Her parents were alive, she doesn't have a relationship with her father, and she started connecting with her mother with boundaries. PT describes her family as toxic for her so she'd rather keep them away. However, she is very close to her 's family. 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 Developmental history and status PT has dyslexia, however was misdiagnosed and never received the support she needed while in school age. Currently WNL despite still has reading struggles. She also has some memory issues after a head injury. was Social support , [id number], children. Community support None. Roman Catholic/Spirituality Tenriism. Cultural/Ethnic information Family is from [place]. She was born and raised in [place], [place]. PT is bilingual. Legal Involvement and History Current or historical involvement with the legal system? None reported. Education Highest grade completed 10th. 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 Preferred learning style Learn by doing and Visual Currently enrolled in educational program? No Interested in further educational program? Yes Educational Interests/Skills PT would like to obtain her GED and obtain the medical care manager certificate or get an LIFE TESTER [employer]. 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 Some weeks she does full-time. ) Wants help to find employment? No Meaningful activities Arts/Crafts, homemaking things, family activities, Financial Situation Describe current financial situation Comfortable and Occasional struggle Financial assistance? Food [place] Service Service? No Assessment & Plan Assessment & Plan (1) Adjustment disorder: Code(s): F43.20 - Adjustment disorder, unspecified Qualifiers: Adjustment disorder type: unspecified type Qualified Code(s): F43.20 - Adjustment disorder, unspecified Plan: Pt not cleared today, we will meet again on 02/12 to finish assessment. PT will need to complete BES and PHQ-9 as these forms were not given when re- started services. Medications: Discontinued cholecalciferol (vitamin D3) Discontinued Reason: Doctor's Order 25 mcg PO DAILY 90 days 90 caps 1RF Telehealth Telehealth Telehealth [facility] Location of provider rendering services: other Location of patient: address on file Patient Identification confirmed using: Name, : Yes Telehealth method: video Patient verbally consented to treatment: Yes Patient verbally consented to billing insurance company: Yes Patient informed of any privacy concerns related to visit: No Minutes spent on Phone/Video with Pt.: 55 Coding Level of Care Code New Pt Tele Psy Diag Britany ([id number]) Patient Type New Diagnoses Adjustment disorder, unspecified type F43.20 Adjustment disorder type: unspecified type Time Spent (min) 55
== END 2024-01-28 12:00 | disposition home or self-care (01) ==
LOC: HO.HBST 11:14
PROVIDERS: PCP Internal Medicine; Visit Provider Counselor Mental Health
DX: F43.20 Adjustment disorder, unspecified (principal)
CPT/HCPCS: 90791

== ENCOUNTER → 2024-01-28 11:00 | Outpatient (BNVA) | payer OTHER, SELFPAY | PROVIDERS: PCP Internal Medicine; Visit Provider Counselor Mental Health ==

== ENCOUNTER 2024-01-28 13:02 | Outpatient (AMB) | payer OTHER, SELFPAY ==
--- NOTE | 2024-01-28 13:09 | MHC.PC.OV ---
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 Required: No Accompanied by: Self / Same As Patient Allergies No Known Allergies Allergy (Verified 01/28/24 13:29) Medication List - Last Reconciled 01/28/24 by Carol Benitez MD albuterol sulfate 90 mcg/actuation 2 puffs inhalation Q6H PRN cholecalciferol (vitamin D3) 125 mcg PO DAILY 90 days hydrocortisone 2.5% 1 appl topical BID PRN Tobacco use date assessed: 12/10/23 Dental Screening Dental Screen Date: 12/10/23 HPI HPI Comments History of Present Illness Details This is a 38-year-old female with GERD, morbid obesity and moderate recurrent major depression that complains of headaches that can last 3 days associated with photosensitivity and aggravated by noise that happens on the right side of the head associated with right eye pain and blurry vision. No unilateral weakness. She has had migraines since she was a child but for the past year it has been more frequent and more intense. Will start her on Triptan as needed and Topamax for migraine prophylaxis at bedtime. I will order MRI and refer her to Neurology. GERD has been stable with PPIs. She is morbidly obese and follows with weight management. Depression has been in remission. [facility] Medical History (Updated 01/28/24 @ 20:04 by Carol Benitez MD) Generalized anxiety disorder Hypovitaminosis D Impaired glucose tolerance GERD (gastroesophageal reflux disease) Asthma Surgical History Hx of hysterectomy H/O wrist surgery S/P laparoscopic appendectomy S/P laparoscopic cholecystectomy Morbid obesity Family History Father No problems noted. Mother Brain tumor HTN (hypertension) Hyperlipidemia DM (diabetes mellitus) Arthritis Brother No problems noted. Sister No problems noted. Sister No problems noted. Son No problems noted. Daughter No problems noted. Family/Other Substance use disorder Mental health disorder Maternal Grandmother Breast cancer Paternal Grandmother Breast cancer Paternal Grandfather Leukemia Maternal Aunt Ovarian cancer Breast cancer Maternal Uncle Colon cancer Social History (Updated 01/28/24 @ 13:32 by Carol Benitez MD) Household Members: Spouse and Children Housing: House Alcohol intake: current Alcohol intake frequency: holidays/special occasions only Alcohol type: beer and wine Patient Tobacco Use Status: Never used Tobacco e-Cigarette/Vaping Use: Never Used Second Hand Smoke Exposure: No Trauma History: Past trauma-prefers female providers only service: No Current occupational status: employed Current occupational exposures/hazards: No Sexual orientation: Straight/Heterosexual Gender identity: Female Cognitive needs: No Hearing needs: No Vision needs: No Female Reproductive History Menstrual Age of Menarche: 7 Questionnaire Thrive Questionnaire Date Thrive assessed: 12/10/23 MAIKEL-7 AMB Questionnaire MAIKEL-7 Date MAIKEL - 7 assessed: 12/10/23 Source: Developed by Drs. Xavier Meraz, Caron Lynch, Travis Christine and colleagues, with an educational noemy from [facility]. Review of Systems Const All systems reviewed & are unremarkable except as noted in HPI and below Card Denies chest pain at rest, Denies chest pain with activity, Denies edema, Denies irregular heart rhythm, Denies claudication, Denies orthopnea, Denies paroxysmal nocturnal dyspnea and Denies slow heart rate Physical exam (Primary Care) Vital Signs: Last Vital Signs BP 122/76 01/28/24 13:10 BMI result Body Mass Index 51.6 BMI Assessment/Plan discussion: High BMI High, discussed plan: lifestyle, weight reduction, dietary and physical activity Tobacco/Smoking Status: Tobacco use Status Tobacco use date assessed 12/10/23 01/28/24 13:14 Patient Tobacco Use Status Never used Tobacco 01/28/24 13:32 e-Cigarette/Vaping Use Never Used 01/28/24 13:32 Thrive Assessment: Date of Thrive Assessment Date Thrive assessed 12/10/23 01/28/24 13:14 Resp Effort & Inspection: normal respiratory effort Auscultation: clear to auscultation bilaterally Cardio Jugular venous distension: no JVD Rate: regular rate Rhythm: regular rhythm Heart sounds: S1 normal heart sound present and S2 normal heart sound present Extrem General: Yes full ROM Assessment and Plan Assessment & Plan (1) Ophthalmoplegic migraine: Code(s): G43.B0 - Ophthalmoplegic migraine, not intractable Qualifiers: Intractability: not intractable Qualified Code(s): G43.B0 - Ophthalmoplegic migraine, not intractable Plan: Start sumatriptan. Start Topamax for prophylaxis. MRI of the brain ordered. Referred to neurology. (2) Moderate recurrent major depression: Code(s): F33.1 - Major depressive disorder, recurrent, moderate Plan: In remission. (3) Morbid obesity: Code(s): E66.01 - Morbid (severe) obesity due to excess calories Plan: Start diet and exercise. BMI goal is less than 30. Follow-up with weight management. (4) GERD (gastroesophageal reflux disease): Code(s): K21.9 - Gastro-esophageal reflux disease without esophagitis Qualifiers: Esophagitis presence: esophagitis presence not specified Qualified Code(s): K21.9 - Gastro-esophageal reflux disease without esophagitis Plan: Continue PPIs. Orders: Orders MR head/brain wo con Today G43.B0 - Ophthalmoplegic migraine, not intractable Referrals Ophthalmology Referral H53.9 - Unspecified visual disturbance Neurology Referral G43.B0 - Ophthalmoplegic migraine, not intractable Medications: New hydrocortisone 2.5% 1 appl topical BID PRN 28 grams 0RF allergic reaction 30 days sumatriptan succinate do not exceed 8 doses per 24 hrs 25 mg PO Q2-4H PRN 9 tabs 3RF migraine headache 30 days topiramate 25 mg PO BEDTIME 30 tabs 3RF 30 days cetirizine (All Day Allergy (cetirizine)) 10 mg PO DAILY PRN 90 tabs 1RF allergy symptoms 90 days Changed From albuterol sulfate 90 mcg/actuation 2 puffs inhalation Q6H PRN To albuterol sulfate 90 mcg/actuation 2 puffs inhalation Q6H PRN 8.5 grams 2RF bronchospasm 30 days Discontinued cholecalciferol (vitamin D3) Discontinued Reason: Doctor's Order 25 mcg PO DAILY 90 days 90 caps 1RF Coding Level of Care Code Est Pt Level 4 (15992) Complex EM visit Add On G2211 Diagnoses Ophthalmoplegic migraine, not intractable G43.B0 Intractability: not intractable Moderate recurrent major depression F33.1 Morbid obesity E66.01 Gastroesophageal reflux disease, unspecified whether esophagitis present K21.9 Esophagitis presence: esophagitis presence not specified Time Spent (min) 24
[2024-01-28 13:10] VITALS: BP 122/76; BMI 51.6
== END 2024-01-28 13:43 | disposition home or self-care (01) ==
PROVIDERS: PCP Internal Medicine; Visit Provider Internal Medicine
DX: G43.B0 Ophthalmoplegic migraine, not intractable (principal); F33.1 Major depressive disorder, recurrent, moderate; E66.01 Morbid (severe) obesity due to excess calories; Z68.43 Body mass index [BMI] 50.0-59.9, adult; K21.9 Gastro-esophageal reflux disease without esophagitis
CPT/HCPCS: 99214; G2211

== ENCOUNTER 2024-01-29 10:11 | Outpatient (REF) | payer OTHER, SELFPAY ==
[2024-01-29 11:51] LABS: Alanine Aminotransferase 17 U/L (0-31); Albumin Level 3.8 g/dL (3.5-5.0); Alkaline Phosphatase 60 U/L (39-117); Anion Gap 11 (12-20); Aspartate Amino Transferase 11 U/L (5-31); Bilirubin Total 0.3 mg/dL (0.0-1.0); Blood Urea Nitrogen 7 mg/dL (9-16); Calcium 8.9 mg/dL (8.4-10.2); Carbon Dioxide 25 mmol/L (22-29); Chloride 107 mmol/L (96-108); Cholesterol 161 mg/dL (<200); Estimated Glomerular Filt Rate > 60; Glucose Fasting 116 mg/dL (60-99); HDL Cholesterol 51 mg/dL (>40); LDL Cholesterol Calculated 98 mg/dL (<100); Potassium 4.6 mmol/L (3.3-5.1); Sodium 138 mmol/L (135-145); Total Protein 6.6 g/dL (6.5-8.0); Triglycerides 60 mg/dL (<150)
== END 2024-01-29 10:12 | disposition home or self-care (01) ==
LOC: HO.LAB 10:11
PROVIDERS: PCP Internal Medicine; Visit Provider Internal Medicine
DX: E78.5 Hyperlipidemia, unspecified (principal); G43.B0 Ophthalmoplegic migraine, not intractable
CPT/HCPCS: 36415; 80053; 80061

== ENCOUNTER → 2024-02-01 08:48 | Outpatient (BNVA) | payer OTHER, SELFPAY | PROVIDERS: PCP Internal Medicine; Visit Provider Surgery ==

== ENCOUNTER → 2024-02-13 09:52 | Outpatient (AMB) | payer OTHER, SELFPAY ==
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
== END ==
PROVIDERS: PCP Internal Medicine; Visit Provider Counselor Mental Health
DX: F43.20 Adjustment disorder, unspecified (principal)
CPT/HCPCS: 90837

== ENCOUNTER → 2024-02-13 09:52 | Outpatient (BNVA) | payer OTHER, SELFPAY | PROVIDERS: PCP Internal Medicine; Visit Provider Counselor Mental Health ==

== ENCOUNTER 2024-02-19 19:51 | Outpatient (REF) | payer OTHER, SELFPAY ==
--- NOTE | ~2024-02-19 | MR_ITS ---
EXAMINATION: MR BRAIN WITHOUT CONTRAST CLINICAL INFORMATION: Ophthalmoplegic migraine, not intractable COMPARISON: None available. TECHNIQUE: MRI of the brain was obtained using routine sequences without contrast. FINDINGS: No acute intracranial hemorrhage or infarct. No edema, midline shift or hydrocephalus. No acute extra-axial fluid collections. The osseous structures are unremarkable. Partially empty sella. The pineal gland and remaining midline structures are unremarkable. No orbital pathology. The paranasal sinuses and mastoid air cells are clear. MR/MR head/brain wo con IMPRESSION: 1. Unremarkable MRI brain. No acute intracranial abnormalities. 2. Partially empty sella. Electronically signed by: Nancy Madison MD 04/11/2024 02:42 PM EST
== END 2024-02-19 19:52 | disposition home or self-care (01) ==
LOC: HO.MRI 19:51
PROVIDERS: PCP Internal Medicine; Visit Provider Internal Medicine
DX: G43.B0 Ophthalmoplegic migraine, not intractable (principal)
CPT/HCPCS: 70551

== ENCOUNTER 2024-02-28 11:33 | Outpatient (AMB) | payer OTHER, SELFPAY ==
--- NOTE | 2024-02-28 11:37 | MHC.OFFVISWM ---
VS Expanded 02/28/24 11:47 BP 166/91 H Blood Pressure Location Rt brachial Blood Pressure Position Sitting Pulse 84 Pulse Source Pulse Oximeter Temp 97.4 F Temperature Source Temporal Artery Scan Pulse Oximetry 97 Oxygen Delivery Method Room Air Height 5 ft 1 in Weight 269 lb 9.6 oz BMI 50.9 Body Fat % 48.0 Body Fat Mass 129.4 Fat Free Mass 140.0 Visceral Fat Rating 16.0 Body Water % 37.2 Body Water Mass 100.4 Muscle Mass/Score 133.0 Basal Metabolic Rate/Score 2,006 Intake Visit Reasons: (OV) F/U SWL Echo Vascular Technologist Required: No Allergies No Known Allergies Allergy (Verified 02/28/24 11:50) Medication List - Last Reconciled 02/28/24 by RAKESH Carlos albuterol sulfate 90 mcg/actuation 2 puffs inhalation Q6H PRN 30 days bisacodyl (Dulcolax (bisacodyl)) 10 mg IN DAILY PRN cetirizine (All Day Allergy (cetirizine)) 10 mg PO DAILY PRN 90 days cholecalciferol (vitamin D3) 125 mcg PO DAILY 90 days hydrocortisone 2.5% 1 appl topical BID PRN 30 days sennosides (senna) 17.2 mg (2 x 8.6 mg) PO BEDTIME 90 days sumatriptan succinate 25 mg PO Q2-4H PRN 30 days topiramate 25 mg PO BEDTIME 30 days HPI Comments Details: Patient is a pleasant 30-year-old female who returns to the office in follow-up. She presented 01/15/2024 to reestablish is a new patient. At that time, her weight was 272 lb with a BMI of 51.4. Weight today is 269.6 lb with a BMI of 50.9. She has lost 2.4 lb or 0.8% total body weight loss. She states she has been constipated for the last 2 weeks and has some LLQ and LUQ abdominal discomfort. No N/V. She is following the meal plan from the [employer]. She was out of supplies this week but did not have finances to purchase the supplies. She is now able to afford the [employer] products meal plan: shake w coconut milk another shake bar bar meal 9 forks protein and 9 forks veg bar Drinking 90 oz water exercise walking outside not tracking calories outdoor bike treadmill and rowing machine in house [facility] Medical History Generalized anxiety disorder Hypovitaminosis D Impaired glucose tolerance GERD (gastroesophageal reflux disease) Asthma Surgical History Hx of hysterectomy H/O wrist surgery S/P laparoscopic appendectomy S/P laparoscopic cholecystectomy Morbid obesity Family History Father No problems noted. Mother Brain tumor HTN (hypertension) Hyperlipidemia DM (diabetes mellitus) Arthritis Brother No problems noted. Sister No problems noted. Sister No problems noted. Son No problems noted. Daughter No problems noted. Family/Other Substance use disorder Mental health disorder Maternal Grandmother Breast cancer Paternal Grandmother Breast cancer Paternal Grandfather Leukemia Maternal Aunt Ovarian cancer Breast cancer Maternal Uncle Colon cancer Social History Household Members: Spouse and Children Housing: House Alcohol intake: current Alcohol intake frequency: holidays/special occasions only Alcohol type: beer and wine Patient Tobacco Use Status: Never used Tobacco e-Cigarette/Vaping Use: Never Used Second Hand Smoke Exposure: No Trauma History: Past trauma-prefers female providers only service: No Current occupational status: employed Current occupational exposures/hazards: No Sexual orientation: Straight/Heterosexual Gender identity: Female Cognitive needs: No Hearing needs: No Vision needs: No Female Reproductive History Menstrual Age of Menarche: 7 Physical Exam Const General: healthy appearing and no acute distress Resp Effort & Inspection: normal respiratory effort Auscultation: clear to auscultation bilaterally Cardio Rate: regular rate Rhythm: regular rhythm GI Auscultation: normal bowel sounds Extrem General: Yes normal to inspection Assessment & Plan Assessment & Plan (1) Morbid obesity: Code(s): E66.01 - Morbid (severe) obesity due to excess calories Category: Surgical Plan: Discussed the importance of following the meal plan exactly. She has been using a different shake product and applying it to the meal plan that was created for her although it is not clear that the shake she chose to create the meal plan is equal to the shake that she is using. We discussed the importance in its implication to follow the plan exactly. Additionally, discussed the importance of exercising and tracking calories. She will begin to use her treadmill and rowing machine at home as well as track her calories while walking outside using the [employer] brian. we will have her return to the office in approximately 3-4 weeks. (2) Constipation: Code(s): K59.00 - Constipation, unspecified Category: Medical Plan: Discussed the importance of communicating weekly. Discussed the importance of not waiting for 2 weeks before discussing constipation. We will send in a prescription for Dulcolax suppository and senna. She was advised that she may certainly go to the emergency room if she is having difficulty passing her stool. She was also advised of possible syncope while passing stool of such quantity. Medications: New sennosides (senna) 17.2 mg (2 x 8.6 mg) PO BEDTIME 180 tabs 0RF constipation 90 days bisacodyl (Dulcolax (bisacodyl)) 10 mg IN DAILY PRN 12 ea 0RF constipation
[2024-02-28 11:47] VITALS: BP 166/91; PULSE 84; TEMP 36.3; O2SAT 97; BMI 50.9
== END 2024-02-28 12:14 | disposition home or self-care (01) ==
PROVIDERS: PCP Internal Medicine; Visit Provider Physician Assistant Surgical
DX: E66.813 Obesity, class 3 (principal); Z68.43 Body mass index [BMI] 50.0-59.9, adult; K59.00 Constipation, unspecified
CPT/HCPCS: 99213

== ENCOUNTER → 2024-02-28 11:33 | Outpatient (BNVA) | payer OTHER, SELFPAY | PROVIDERS: PCP Internal Medicine; Visit Provider Physician Assistant Surgical | DX: E66.01 Morbid (severe) obesity due to excess calories (principal); K59.00 Constipation, unspecified; R10.32 Left lower quadrant pain; R10.12 Left upper quadrant pain; Z68.42 Body mass index [BMI] 45.0-49.9, adult; Z90.49 Acquired absence of other specified parts of digestive tract | CPT/HCPCS: 99212 ==

== ENCOUNTER 2024-05-01 20:27 | Emergency (ER) | payer OTHER, SELFPAY ==
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
[2024-05-01 20:55] VITALS: BP 143/96; PULSE 90; RESP 18; TEMP 37.1; O2SAT 93; BMI 59.8
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
[2024-05-01] MEDS: Acetaminophen 325 MG TABLET 975 MG PO (23:48)
[2024-05-02 01:10] VITALS: BP 150/68; PULSE 63; RESP 16; TEMP 36.6; O2SAT 97
--- NOTE | 2024-05-02 01:58 | PC.NURSE ---
Pt resting on stretcher, NAD, CT results received awaiting MD reeval, aware of plan of care.
[2024-05-02 02:14] VITALS: BP 150/68; PULSE 63; RESP 16; TEMP 36.6; O2SAT 97
== END 2024-05-02 02:15 | disposition home or self-care (01) ==
PROVIDERS: Emergency Provider Internal Medicine; PCP Internal Medicine
DX: S13.4XXA Sprain of ligaments of cervical spine, initial encounter (principal); V43.52XA Car driver injured in collision with other type car in traffic accident, initial encounter; R51.9 Headache, unspecified; Y93.89 Activity, other specified; Y92.414 Local residential or business street as the place of occurrence of the external cause; Y99.9 Unspecified external cause status
CPT/HCPCS: 70450; 72125; 99284

== ENCOUNTER 2024-05-08 08:52 | Outpatient (AMB) | payer OTHER, SELFPAY ==
[2024-05-08 09:44] VITALS: BP 138/72; PULSE 79; O2SAT 98; BMI 59.3
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
== END 2024-05-08 10:15 | disposition home or self-care (01) ==
PROVIDERS: PCP Internal Medicine; Visit Provider Internal Medicine
DX: S13.4XXA Sprain of ligaments of cervical spine, initial encounter (principal); Z04.3 Encounter for examination and observation following other accident

== ENCOUNTER 2024-06-11 10:43 | Outpatient (AMB) | payer OTHER, SELFPAY ==
[2024-06-11 10:50] VITALS: BP 136/70; BMI 60.3
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
== END 2024-06-11 11:16 | disposition home or self-care (01) ==
PROVIDERS: PCP Internal Medicine; Visit Provider Internal Medicine
DX: F41.1 Generalized anxiety disorder (principal); F33.1 Major depressive disorder, recurrent, moderate; E66.01 Morbid (severe) obesity due to excess calories; Z68.44 Body mass index [BMI] 60.0-69.9, adult; G43.B0 Ophthalmoplegic migraine, not intractable

== ENCOUNTER → 2024-06-11 10:43 | Outpatient (BNVA) | payer OTHER, SELFPAY | PROVIDERS: PCP Internal Medicine; Visit Provider Internal Medicine | DX: F33.1 Major depressive disorder, recurrent, moderate (principal); G43.B0 Ophthalmoplegic migraine, not intractable; F41.1 Generalized anxiety disorder; E66.01 Morbid (severe) obesity due to excess calories | CPT/HCPCS: 96127; 99212 ==

== ENCOUNTER 2024-07-21 08:44 | Outpatient (RCR) | payer OTHER, SELFPAY ==
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
== END 2024-07-21 11:47 | disposition home or self-care (01) ==
LOC: HO.PT 08:44
PROVIDERS: PCP Internal Medicine; Visit Provider Internal Medicine
DX: S13.4XXD Sprain of ligaments of cervical spine, subsequent encounter (principal)
CPT/HCPCS: 97014; 97110; 97112; 97140; 97161; 97530; 97535

== ENCOUNTER 2024-10-21 08:53 | Outpatient (AMB) | payer OTHER, SELFPAY ==
--- NOTE | 2024-10-21 08:58 | MHC.OFFVIS ---
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 Doing well with curtain cutter hand concerns: incontinence since her hysterectomy. Currently is sexually active. She denies vaginal itching or irritation. STI screening offered; she accepts. She tries to eat healthy, admits to stress eating, limited exercise. Family history of breast, ovarian or colon cancer. Last pap smear 2022, negative. [facility] Medical History (Updated 10/21/24 @ 09:37 by Leslie Razo CNM) Stress incontinence Generalized anxiety disorder Hypovitaminosis D Impaired glucose tolerance GERD (gastroesophageal reflux disease) Asthma Surgical History Hx of hysterectomy H/O wrist surgery S/P laparoscopic appendectomy S/P laparoscopic cholecystectomy Morbid obesity Family History Father No problems noted. Mother Brain tumor HTN (hypertension) Hyperlipidemia DM (diabetes mellitus) Arthritis Brother No problems noted. Sister No problems noted. Sister No problems noted. Son No problems noted. Daughter No problems noted. Family/Other Substance use disorder Mental health disorder Maternal Grandmother Breast cancer Paternal Grandmother Breast cancer Paternal Grandfather Leukemia Maternal Aunt Ovarian cancer Breast cancer Maternal Uncle Colon cancer Social History Household Members: Spouse and Children Housing: House Alcohol intake: current Alcohol intake frequency: does not drink Alcohol type: beer and wine Patient Tobacco Use Status: Never used Tobacco e-Cigarette/Vaping Use: Never Used Second Hand Smoke Exposure: No Trauma History: Past trauma-prefers female providers only Patient : No service: No Current occupational status: employed Current occupational exposures/hazards: No Sexual orientation: Straight/Heterosexual Gender identity: Female Cognitive needs: No Hearing needs: No Vision needs: No Female Reproductive History Menstrual Age of Menarche: 7 control method: none Total pregnancies: 3 Full term: 3 Date of last pap smear: 07/07/22 (negative pap smear, negative hpv) History of abnormal pap smear: Yes Review of Systems Const All systems reviewed & are unremarkable except as noted in HPI and below Reports as per HPI Eyes Reports no additional complaints ENT Reports no additional complaints Card Reports no additional complaints Resp Reports no additional complaints GI Reports as per HPI and Reports no additional complaints Reports as per HPI Musc Reports no additional complaints Skin/Breast Reports as per HPI Neuro Reports no additional complaints Psych Reports no additional complaints Endo Reports no additional complaints Alexsander/Lymph Reports no additional complaints Aller/Immun Reports no additional complaints Physical Exam Vital Signs: Last Vital Signs BP 120/74 10/21/24 09:00 BMI result Body Mass Index 61.6 Const General: cooperative, healthy appearing, no acute distress, well developed and alert Orientation/consciousness: patient oriented x3 HEENT Head: Yes normal to inspection Eyes General: appearance normal, both eyes and all related structures Neck Neck: Yes normal visual inspection Thyroid: Thyroid normal Chest Chest palpation & inspection: normal inspection of the chest and other (no puckering, dimpling, peau de orange, retraction, discharge, masses) Breast/axilla inspection: normal inspection of the breasts Breast/axilla palpation: normal palpation of the breasts Resp Effort & Inspection: normal respiratory effort GI Inspection: Yes normal to inspection Palpation (GI): Soft to palpation Rectal Exam - Female: deferred General: Yes bladder normal to palpation External Female Exam: normal external appearance and normal appearance of the urethra Speculum Exam - Vagina: normal appearance of the vagina, normal palpation and normal vaginal discharge Speculum Exam - Cervix: Cervix absent (Vaginal cuff no lesions or nodules) Bimanual exam- vagina & uterus: normal bimanual exam, normal palpation, bladder normal to palpation and uterus absent Bimanual Exam- Adnexa, other: no masses Skin General skin exam: no rashes or lesions noted Rashes: no rashes Neuro General: patient oriented x3 Cognition (Neuro): normal cognition Extrem General: Yes normal to inspection Psych Attitude: cooperative Thought process: Normal thought process present Assessment & Plan Assessment & Plan (1) Well woman exam: Code(s): Z01.419 - Encounter for gynecological examination (general) (routine) without abnormal findings Category: Medical Plan: Discussed: Current recommendations for pap smears per ASCCP guidelines. Breast awareness and periodic breast exams. Maintain a healthy lifestyle including a well balanced diet and routine exercise. Patient verbalizes understanding and agrees to the plan of care. She was given opportunity to ask questions and all questions were answered to the best of my ability. RTO in one year for annual curtain cutter hand examination. This note is constructed using voice recognition software. While every effort has been made to ensure accuracy, music minister errors may have been included. (2) Incontinence: Code(s): R32 - Unspecified urinary incontinence Category: Medical Qualifiers: Incontinence type: urinary Urinary Incontinence type: unspecified incontinence Qualified Code(s): R32 - Unspecified urinary incontinence Plan Referral placed to pelvic floor therapy department for further evaluation and treatment. The patient expressed understanding and agreement with the plan of care. All of her questions and concerns were addressed to the best of my ability. Orders: Referrals Pelvic Instrument Designer Referral N39.3 - Stress incontinence (female) (male) Coding Level of Care Code Est Pt Prev Care 18-39y(49359) Diagnoses Well woman exam Z01.419 Urinary incontinence, unspecified type R32 Incontinence type: urinary Urinary Incontinence type: unspecified incontinence
[2024-10-21 09:00] VITALS: BP 120/74; BMI 61.6
== END 2024-10-21 10:11 | disposition home or self-care (01) ==
LOC: HO.HWS 08:54
PROVIDERS: PCP Internal Medicine; Visit Provider Advanced Practice Midwife
DX: Z01.419 Encounter for gynecological examination (general) (routine) without abnormal findings (principal); R32 Unspecified urinary incontinence
CPT/HCPCS: 99395; 99459

== ENCOUNTER → 2024-10-21 08:53 | Outpatient (BNVA) | payer OTHER, SELFPAY | PROVIDERS: PCP Internal Medicine; Visit Provider Advanced Practice Midwife | DX: Z01.419 Encounter for gynecological examination (general) (routine) without abnormal findings (principal); R32 Unspecified urinary incontinence | CPT/HCPCS: 99395; 99459 ==

== ENCOUNTER 2024-12-15 09:06 | Outpatient (AMB) | payer OTHER, SELFPAY ==
[2024-12-15 09:27] VITALS: BP 136/82; BMI 50.1
--- NOTE | 2024-12-15 09:27 | MHC.PC.OV ---
Vital Signs 12/15/24 09:27 Height 5 ft 2 in Weight 274 lb BMI 50.1 BP 136/82 Blood Pressure Location Lt brachial Position Sitting Intake Visit Reasons: PE Intake Note: patient here for a physical exam, c/o right side below ear lump Manager Imaging Required: No Accompanied by: Self / Same As Patient Allergies No Known Allergies Allergy (Verified 12/15/24 09:45) Medication List - Last Reconciled 12/15/24 by Carol Benitez MD albuterol sulfate 90 mcg/actuation 2 puffs inhalation Q6H PRN 30 days bisacodyl (Dulcolax (bisacodyl)) 10 mg MD DAILY PRN cetirizine (All Day Allergy (cetirizine)) 10 mg PO DAILY PRN 90 days cholecalciferol (vitamin D3) 125 mcg PO DAILY 90 days hydrocortisone 2.5% 1 appl topical BID PRN 30 days sennosides (senna) 17.2 mg (2 x 8.6 mg) PO BEDTIME 90 days sertraline 25 mg PO DAILY 30 days sumatriptan succinate 25 mg PO Q2-4H PRN 30 days topiramate 25 mg PO BEDTIME 30 days Tobacco use date assessed: 06/11/24 Dental Screening Dental Screen Date: 06/11/24 HPI HPI Comments History of Present Illness Details This is a 39-year-old female that comes for her physical exam. She declines pneumonia and Tdap vaccine today. She has super super obese with a BMI of 50.1 and was advised to call weight management again. Had a hysterectomy for endometrial hyperplasia. Complains of right ear pain and submandibular lymphadenopathy that has been present for few months. [facility] Medical History (Updated 12/15/24 @ 09:58 by Carol Benitez MD) Stress incontinence Generalized anxiety disorder Hypovitaminosis D Impaired glucose tolerance GERD (gastroesophageal reflux disease) Asthma Surgical History Hx of hysterectomy H/O wrist surgery S/P laparoscopic appendectomy S/P laparoscopic cholecystectomy Morbid obesity Family History (Updated 12/15/24 @ 09:51 by Carol Benitez MD) Father Cancer Mother Brain tumor HTN (hypertension) Hyperlipidemia DM (diabetes mellitus) Arthritis Brother No problems noted. Sister No problems noted. Sister No problems noted. Son No problems noted. Daughter No problems noted. Family/Other Substance use disorder Mental health disorder Maternal Grandmother Breast cancer Paternal Grandmother Breast cancer Paternal Grandfather Leukemia Maternal Aunt Ovarian cancer Breast cancer Maternal Uncle Colon cancer Social History (Updated 12/15/24 @ 09:51 by Carol Benitez MD) Household Members: Spouse and Children Housing: House Alcohol intake: current Alcohol intake frequency: does not drink Alcohol type: beer and wine Patient Tobacco Use Status: Never used Tobacco e-Cigarette/Vaping Use: Never Used Second Hand Smoke Exposure: No Trauma History: Past trauma-prefers female providers only service: No Current occupational status: employed Current occupational exposures/hazards: No Sexual orientation: Straight/Heterosexual Gender identity: Female Cognitive needs: No Hearing needs: No Vision needs: No Female Reproductive History Menstrual Age of Menarche: 7 Questionnaire Thrive Questionnaire Date Thrive assessed: 06/11/24 MAIKEL-7 AMB Questionnaire MAIKEL-7 Date MAIKEL - 7 assessed: 12/10/23 Source: Developed by Drs. Xavier Meraz, Caron Lynch, Travis Christine and colleagues, with an educational noemy from [employer]. Review of Systems Const All systems reviewed & are unremarkable except as noted in HPI and below Card Denies chest pain at rest, Denies chest pain with activity, Denies edema, Denies irregular heart rhythm, Denies claudication, Denies dyspnea, Denies dyspnea on exertion, Denies orthopnea, Denies paroxysmal nocturnal dyspnea and Denies slow heart rate Resp Denies cough, Denies dyspnea and Denies dyspnea on exertion GI Denies abdominal pain, Denies change in bowel habits, Denies excessive flatus, Denies nausea and Denies vomiting Skin/Breast Denies bleeding lesions, Denies changing lesions and Denies rash Neuro Denies lack of coordination Physical exam (Primary Care) Vital Signs: Last Vital Signs BP 136/82 12/15/24 09:27 BMI result Body Mass Index 50.1 BMI Assessment/Plan discussion: High BMI High, discussed plan: lifestyle, weight reduction, dietary and physical activity Tobacco/Smoking Status: Tobacco use Status Tobacco use date assessed 06/11/24 12/15/24 09:33 Patient Tobacco Use Status Never used Tobacco 12/15/24 09:51 e-Cigarette/Vaping Use Never Used 12/15/24 09:51 Thrive Assessment: Date of Thrive Assessment Date Thrive assessed 06/11/24 12/15/24 09:33 [facility] Head: Yes normal to inspection, Yes normocephalic and Yes atraumatic Ears: external ears normal Eyes General: appearance normal, both eyes and all related structures Eyelids: Yes eyelids normal Conjunctivae: conjunctivae normal Neck Neck: Yes normal visual inspection and Yes supple Resp Effort & Inspection: normal respiratory effort Auscultation: clear to auscultation bilaterally Cardio Jugular venous distension: no JVD Rate: regular rate Rhythm: regular rhythm Heart sounds: S1 normal heart sound present and S2 normal heart sound present GI Inspection: Yes normal to inspection Palpation (GI): Soft to palpation and nontender Auscultation: normal bowel sounds Skin General skin exam: no rashes or lesions noted Neuro General: no focal motor deficits Extrem General: Yes full ROM Psych Appearance: grossly normal Coding Level of Care Code Est Pt Level 3 (22955) Est Pt Prev Care 18-39y(69820) Diagnoses Physical exam Z00.00 Submandibular lymphadenopathy R59.0 Super-super obese E66.01 Time Spent (min) 32 Assessment & Plan Assessment & Plan (1) Physical exam: Code(s): Z00.00 - Encounter for general adult medical examination without abnormal findings Category: Medical (2) Submandibular lymphadenopathy: Code(s): R59.0 - Localized enlarged lymph nodes Category: Medical (3) Super-super obese: Code(s): E66.01 - Morbid (severe) obesity due to excess calories Category: Medical Plan Repeat in a year. Do ultrasound of the neck. Orders: Orders Vitamin D 25-OH Total Today E55.9 - Vitamin D deficiency, unspecified Thyroid Stimulating Hormone Today E66.01 - Morbid (severe) obesity due to excess calories Complete Blood Count Auto Diff Today E66.01 - Morbid (severe) obesity due to excess calories Lipid Panel Today E66.01 - Morbid (severe) obesity due to excess calories Comprehensive [place]. Panel Fast Today E66.01 - Morbid (severe) obesity due to excess calories US soft tiss head and/or neck Today R59.0 - Localized enlarged lymph nodes Medications: Refilled hydrocortisone 2.5% 1 appl topical BID PRN 28 grams 0RF allergic reaction 30 days sumatriptan succinate do not exceed 8 doses per 24 hrs 25 mg PO Q2-4H PRN 9 tabs 3RF migraine headache 30 days albuterol sulfate 90 mcg/actuation 2 puffs inhalation Q6H PRN 8.5 grams 2RF bronchospasm 30 days bisacodyl (Dulcolax (bisacodyl)) 10 mg MD DAILY PRN 12 ea 0RF constipation cetirizine (All Day Allergy (cetirizine)) 10 mg PO DAILY PRN 90 tabs 1RF allergy symptoms 90 days cholecalciferol (vitamin D3) 125 mcg PO DAILY 90 caps 0RF 90 days sennosides (senna) 17.2 mg (2 x 8.6 mg) PO BEDTIME 180 tabs 0RF constipation 90 days topiramate 25 mg PO BEDTIME 30 tabs 3RF 30 days sertraline 25 mg PO DAILY 30 tabs 1RF 30 days F33.1 - Major depressive disorder, recurrent, moderate
== END 2024-12-15 09:58 | disposition home or self-care (01) ==
LOC: HO.HMCH 09:14
PROVIDERS: PCP Internal Medicine; Visit Provider Internal Medicine
DX: Z00.00 Encounter for general adult medical examination without abnormal findings (principal); R59.0 Localized enlarged lymph nodes; E66.01 Morbid (severe) obesity due to excess calories; Z68.43 Body mass index [BMI] 50.0-59.9, adult

== ENCOUNTER → 2024-12-15 09:06 | Outpatient (BNVA) | payer OTHER, SELFPAY | PROVIDERS: PCP Internal Medicine; Visit Provider Internal Medicine | DX: Z00.00 Encounter for general adult medical examination without abnormal findings (principal); R59.0 Localized enlarged lymph nodes; E66.01 Morbid (severe) obesity due to excess calories | CPT/HCPCS: 99212; 99395 ==